=== PATIENT | male | born 1960 | race African-American/Black ===

== ENCOUNTER 2016-03-20 20:44 | Emergency (ER) | payer OTHER ==
[~2016-03-20 20:44] MED LIST: ALLEGRA180 PO; AMB5 PO; ASAB PO; BUM1 PO; BUM5 PO; BYDUREON2 MG SQ; BYETTA SC; CELEXA20 PO; CENTRUM TAB1 TAB PO; COREG25 PO; COREG6 PO; ENDOCET1 TAB PO; FISH OIL1200 MG PO; JANTOVEN4 MG PO; JANTOVEN5 MG PO; KLOR-CON 1010 MEQ PO; L20 PO; LEXAPRO5 MG PO; LIPITOR40 PO; LOTE40 PO; LOTE5 PO; MULTIVITAMI1 PO; NORV5 PO; NUVIGIL250 MG PO; NUVIGIL50 MG PO; PCET PO; PRIN5 PO; SONATA PO; TOPXL25 PO; VIIBRYD40 MG PO; VITAMIN B PO; VITAMIN D1000 UNI1 PO; ZINC PO; [UNRECOGNIZED DRUG - REMARK] PO
[2016-03-20 21:20] LABS: BASOPHILS 0.2 %; BASOPHILS ABSOLUTE 0.01 10/3/uL (0.0-0.16); EOSINOPHILS 1.6 %; EOSINOPHILS ABSOLUTE 0.09 10/3/uL (0.0-0.53); ER CBC TAT 0 Hrs 03 Mins; HEMATOCRIT 45.9 % (40.0-51.0); HEMOGLOBIN 15.1 g/dL (13.6-17.8); IMMATURE GRANULOCYTES 0.4 %; IMMATURE GRANULOCYTES ABSOLUTE 0.02 10/3/uL (0.0-0.11); LYMPHOCYTES 18.7 %; LYMPHOCYTES ABSOLUTE 1.07 10/3/uL (0.67-4.30); MANUAL DIFF NO %; MEAN CORPUS HGB CONC 32.9 g/dL (32.0-36.0); MEAN CORPUSCULAR HEMOGLOB 26.9 pg (26.0-34.0); MEAN CORPUSCULAR VOLUME 81.8 fL (80-100); MEAN PLATELET VOLUME 10.7 fL (9.2-13.0); MONOCYTES 6.7 %; MONOCYTES ABSOLUTE 0.38 10/3/uL (0.21-1.20); NEUTROPHILS 72.4 %; NEUTROPHILS ABSOLUTE 4.14 10/3/uL (2.02-8.40); PLATELET COUNT 246 10/3/uL (150-400); RBC DISTRIBUTION WIDTH 14.8 % (12.0-16.0); RED CELL COUNT 5.61 10/6/uL (4.7-6.1); WHITE BLOOD CELLS 5.7 10/3/uL (4.5-10.5)
[2016-03-20 21:27] LABS: INTERNATIONAL NORMAL RATI 2.2 UNITS (-); PARTIAL THROMBO TIME 29.6 SEC (22.5-37.2); PROTIME (NOT ORD) 24.1 SEC (12.0-14.5)
[2016-03-20 21:38] LABS: BUN (BLOOD UREA NITROGEN) 10 MG/DL (6-23); CALCIUM, SERUM 8.5 MG/DL (8.5-10.4); CHEST PAIN PROFILE TAT 0 Hrs 21 Mins; CHLORIDE, SERUM 104 MMOL/L (96-112); CO2 (CARBON DIOXIDE) 26 MMOL/L (24-34); CREATININE 0.96 MG/DL (0.70-1.30); GFR AFRICAN AMERICAN 103 ML/MIN (>=60); GFR NON AFRICAN AMERICAN 89 ML/MIN (>=60); GLUCOSE, SERUM 98 MG/DL (60-99); SODIUM, SERUM 140 MMOL/L (135-148); TROPONIN I <0.02 NG/ML (<0.05)
[2016-03-21 01:57] LABS: ALBUMIN 3.7 G/DL (3.5-5.0); ALKALINE PHOSPHATASE 60 U/L (45-117); DIRECT BILIRUBIN 0.3 MG/DL (0.0-0.4); INDIRECT BILIRUBIN(NOT ORDER) 0.9 MG/DL (0.1-0.9); SGOT(AST) 34 U/L (5-40); SGPT(ALT) 31 U/L (5-65); TOTAL BILIRUBIN 1.2 MG/DL (0-1.2); TOTAL PROTEIN 7.3 G/DL (6.0-8.5)
[2016-03-21 20:17] LABS: BE (BASE EXCESS) -0.1 MEQ/L (0 +/- 2.5); CARBOXYHEMOGLOBIN 1.7 % (0-3); HCO3 (ACTUAL BICARBONATE) 23.7 MEQ/L (23-27); HEMOBLOGIN CONTENT 15.5 G/DL (14-18); INSTRUMENT SERIAL # 8087; METHEMOGLOBIN 0.5 % (0-3); O2 CONTENT 20.7 VOL% (18-24); PCO2 (CO2 TENSION) 36 MMHG (35-45); PO2 (O2 TENSION) 85 MMHG (79-93); SAMPLE Arterial; pH 7.43 (7.37-7.43)
== END 2016-03-21 02:52 | disposition home or self-care (01) ==
LOC: ER 20:44
PROVIDERS: Nurse Practitioner Acute Care; Specialist
DX: R53.83 Other fatigue (principal); I10 Essential (primary) hypertension; Z95.810 Presence of automatic (implantable) cardiac defibrillator; E11.9 Type 2 diabetes mellitus without complications; F41.9 Anxiety disorder, unspecified; Z79.82 Long term (current) use of aspirin; Z79.899 Other long term (current) drug therapy; Z79.01 Long term (current) use of anticoagulants
CPT/HCPCS: 71020; 80048; 80076; 82805; 83735; 84443; 84484; 85025; 85610; 85730; 86308; 93005; 99285